=== PATIENT | female | born 1970 | race Native Hawaiian/Other Pacific Islander ===

== ENCOUNTER → 2019-03-19 16:02 | Outpatient (CLI) | payer OTHER, SELFPAY ==
--- NOTE | 2019-03-19 16:07 | DI.RAD.S_ITS ---
PROCEDURE: XR HIP W PEL IF DONE LT MIN 4V INDICATIONS: chronic left hip pain TECHNIQUE: AP pelvis with lateral view(s) of the bilateral hip(s). COMPARISON: None. FINDINGS: Bones: No fractures or dislocations. Pelvic ring appears intact. Symmetric appearing mild bilateral hip joint osteoarthritic changes are seen. No evidence of avascular necrosis of femoral heads. No suspicious bony lesions. Soft tissues: The visualized bowel gas pattern is normal. No suspicious soft tissue calcifications. IMPRESSION: Symmetric appearing mild bilateral hip joint osteoarthritis. No fracture or dislocation. No evidence of avascular necrosis. Dictated by: Matt Best M.D. on 03/19/2019 at 16:24 Approved by: Matt Best M.D. on 03/19/2019 at 16:25
== END ==
PROVIDERS: Family Provider Family Medicine; PCP Family Medicine; Visit Provider Physician Assistant
DX: M25.552 Pain in left hip (principal); M16.0 Bilateral primary osteoarthritis of hip
CPT/HCPCS: 73522

== ENCOUNTER → 2019-05-27 16:18 | Outpatient (CLI) | payer OTHER, SELFPAY ==
--- NOTE | 2019-05-27 | DI.RAD.S_ITS ---
PROCEDURE: XR CHEST 2V INDICATIONS: smoker TECHNIQUE: 2 views of the chest were acquired. COMPARISON: [facility], CR, XR CHEST 1 VIEW, 10/03/2018, 0:42. [facility], CR, XR CHEST 1 VIEW, 09/24/2018, 14:13. FINDINGS: Surgical changes and devices: None. Lungs and pleura: Lungs are abnormal, with a new finding of linear stranding at the left lower lobe, considered most likely atelectasis but the etiology is uncertain. No pleural effusions or pneumothorax. Mediastinum: Mediastinal contours are normal. Heart size is normal. Bones and chest wall: No suspicious bony abnormalities. Soft t at the left lung base is again seen,issues appear unremarkable. IMPRESSION: Linear stranding is present at the left lung base, likely atelectasis, and no pulmonary mass lesion is found. No significant volume loss is identified over the lung parenchyma bilaterally. Occasionally in the setting of development of endobronchial mass lesion focal secondary atelectasis can develop, termed sentinel atelectasis. Attention to this portion of the left lower lobe is recommended by plain film imaging in 6 weeks, 3 months, and 6 months. Alternatively, chest CT scanning could be utilized to assess the bronchi leading to this area of atelectasis if clinically indicated. Dictated by: Kem Aquino M.D. on 05/27/2019 at 16:53 Approved by: Kem Aquino M.D. on 05/27/2019 at 16:55
== END ==
PROVIDERS: PCP Family Medicine; Visit Provider Surgery
DX: R91.8 Other nonspecific abnormal finding of lung field (principal); Z87.891 Personal history of nicotine dependence
CPT/HCPCS: 71046